=== PATIENT | female | born 1945 | race Caucasian/White ===

== ENCOUNTER 2017-04-03 12:36 | Inpatient (IN) | payer OTHER ==
[~2017-04-03] VITALS: Ht 165.1 cm; Wt 95.8 kg
--- NOTE | ~2017-04-03 | HC ---
[facility] [place] [address] CONSULTATION Name: JOSE LUIS WESTBROOK Room #: 428-[facility] IN M.R.#: [id number] Admission: 04/03/17 Attend Phys: Syed Brar DO Discharge: 04/04/17 Date of : 45 Report #: [id number] THIS REPORT FOR: //name// CC: Syed Camposry Rizwan DATE OF SERVICE: 04/04/2017 HISTORY OF PRESENT ILLNESS: This is a 71-year-old female patient who was evaluated by me for any neurological etiology for the patient's syncope. She gives a history that she is hypertensive. She did not take her antihypertensive that day. She started feeling bad and somewhat nauseous, then she passed out. She was out, but she did not have any tonic-clonic activity. It looks like she was out for 2 minutes. The exact duration is not clear. She recovered from that, but she may have been somewhat confused for a small amount of time after this episode occurred. No tongue biting or tonic-clonic activity was noticed. She had episode of syncope in the past that is typically at the site of the blood. She was seen by Cardiology and they think it is vasovagal spell and they are going to work her up further as an outpatient. REVIEW OF SYSTEMS: Indicate that she did have an injury to the knee. This was because of mechanical fall. There was no episode of syncope at that time. She did not hit her head or neck during that fall. She is not a diabetic and we do not know what her blood sugar was at that time. She feels back to her baseline. She does take 1 aspirin daily 81 mg and she has done it for some time. I carried out a 14-point review of system in this patient, it mostly looks otherwise unremarkable. PAST MEDICAL HISTORY: Positive for syncope as described above. FAMILY HISTORY: Negative for early age strokes. SOCIAL HISTORY: She does not drink alcohol or smoke presently. She does take an occasional drink. PHYSICAL EXAMINATION: Indicate she is alert. She is responsive. She is able to follow simple and complex command. She believes her speech, concentration, fund of knowledge and memory is at her baseline. Cranial nerve examination 2-12 looks unremarkable. Strength, sensation, reflexes and tone allowing for her knee problem looks unremarkable. She walks with a cane after this injury. I could not have a very good look at the patient's fundus. There is no carotid bruit. There is no thyroid mass. She is reasonably well-developed individual who does not have any dysmorphic features of eyes, ears and face. Her visions and hearing looks adequate. Her pulses are palpable. She has no edema, cyanosis or jaundice. Cardiac examination does not appear to be showing any abnormality which can explain the patient's symptom. There is no respiratory [facility] [address] [place] [address] CONSULTATION Name: JOSE LUIS WESTBROOK Room #: 428-P DIS IN M.R.#: [id number] Admission: 04/03/17 Attend Phys: Syed Brar DO Discharge: 04/04/17 Date of : 45 Report #: [id number] difficulty in this patient or any significant rhonchi. Blood pressure is 138/96, respiration is 22, pulse is 80, temperature is 98.1. LABORATORY DATA: Her white count is normal, but at one time, her potassium was low at 3.2 and her LDL was 142. She did have an MRI of the brain, MRA of the head, MRA of the neck as well as carotid Doppler that showed mild blocking, but nothing which can explain the patient's symptoms. IMPRESSION: It is unlikely that there is any neurological etiology for the patient's syncope. She needs to be worked up from the cardiac perspective as well as systemic causes need to be excluded. That will be deferred to the Cardiology as well as admitting physician, but since she did have a transient confusion after the episode, I will suggest getting an EEG done. I discussed all of this with the patient and I discussed our options in that regard. RECOMMENDATION: I asked her to work with Cardiology to determine any etiology for her symptoms. If after the workup, they do not find any cardiac etiology, then she should make a followup Neurology appointment. I discussed other options also with the patient and she wants to follow this plan. I will suggest treating her dyslipidemia and other systemic abnormality, which I will defer to admitting doctor. She is already dismissed, but I asked her to stay till the EEG is done and she will do. All the restrictions including restrictions on driving presently are being decided by Cardiology. Thank you very much for this referral and if you have any questions, please feel free to contact me. <ELECTRONICALLY SIGNED> By: Jeremi Wylie MD 04/09/17 0943 1113 99 Jeremi Wylie MD /nt
--- NOTE | ~2017-04-03 | EEG ---
[facility] [place] [address] ELECTROENCEPHALOGRAM Name: JOSE LUIS WESTBROOK Room #: 428-P [facility] IN M.R.#: [id number] Admission: 04/03/17 Attend Phys: Syed Brar DO Discharge: 04/04/17 Date of : 45 Report #: [id number] THIS REPORT FOR: //name// CC: Syed Astorga DATE OF SERVICE: 04/04/2017 This patient is being evaluated for an episode of syncope. EEG was done to evaluate the patient for the possibility of seizure. The background activity in this patient's EEG is about 10 Hz and 30 microvolts. This is a symmetrical activity. The patient went to sleep that is associated with bilaterally symmetrical sleep spindle and vertex sharp waves. Throughout the record, no active epileptiform activity was noticed. IMPRESSION: This patient's EEG is within normal limits. Thank you very much for this referral. <ELECTRONICALLY SIGNED> By: Jeremi Wylie MD 04/09/17 0944 1443 [id number] Jeremi Wylie MD /nt
--- NOTE | ~2017-04-03 | EKG ---
[place] [address] [facility] [place] [address] ELECTROCARDIOGRAM REPORT Name: JOSE LUIS WESTBROOK Room #: 428-P ADM IN M.R.#: [id number] Admission: 04/03/17 Attend Phys: Syed Brar DO Discharge: Date of : 45 Report #: [id number] THIS REPORT FOR: //name// [facility] ED Test Date: 2017-04-03 Test Time: 12:39:53 Pat Name: JOSE LUIS WESTBROOK Department: Room: 428 Gender: F Bellows Filler: [id number] : 1945 Requested By: Juan Moncada Order Number: [id number] MD: Luis Barnard Measurements Intervals [place] Rate: 64 P: 16 WY: 151 QRS: 19 QRSD: 89 T: 28 QT: 449 QTc: 464 Interpretive Statements Sinus rhythm Low voltage, precordial leads No previous ECG available for comparison Electronically Signed On 04-04-2017 9:08:27 [employer] by Luis Barnard [email or web address] <ELECTRONICALLY SIGNED> By: Luis Barnard MD, [facility] 04/04/17 0908 1239 1239 Luis Barnard MD, FACC /EPI
--- NOTE | ~2017-04-03 | 2DMMODE ---
[facility] [address] [address] 2 D/M-MODE ECHOCARDIOGRAM Name: JOSE LUIS WESTBROOK ISABELLA Room #: 428-P [facility] IN M.R.#: [id number] Admission: 04/03/17 Attend Phys: Syed Brar, Discharge: Date of : 45 Date of Service: 04/04/17 0925 Report #: [id number] THIS REPORT FOR: //name// APPROVED REPORT Study performed: 04/04/2017 08:18:49 EXAM: Comprehensive 2D, Doppler, and color-flow Echocardiogram Patient Location: Echo lab Room #: 428 Status: routine BSA: 2.02 HR: 78 bpm BP: 126/87 mmHg Rhythm: NSR Other Information Study Quality: Adequate/low parasternal window. Technically difficult due to body habitus. Indications Dyspnea Syncope 2D Dimensions RVDd: 29.26 mm IVSd: 9.92 (7-11mm) LVOT Diam: 20.66 (18-24mm) LVDd: 41.43 mm PWd: 9.29 (7-11mm) Ascending Ao: 26.64 (22-36mm) Aortic Root: 25.74 mm Volumes Left Atrial Volume (Systole) Single Plane 4CH: 33.60 mL Single Plane 2CH: 39.05 mL LA ESV Index: 19.00 mL/m2 Aortic Valve AoV Peak Derek.: 1.24 m/s AO Peak Gr.: 6.16 mmHg LVOT Max P.37 mmHg LVOT Max V: 0.77 m/s CINTHYA Vmax: 2.08 cm2 Mitral Valve E/A Ratio: 0.9 MV Decel. Time: 225.01 ms [facility] [address] [place] [address] 2 D/M-MODE ECHOCARDIOGRAM Name: JOSE LUIS WESTBROOK Room #: 428-P [facility] IN [facility].#: [id number] Admission: 04/03/17 Attend Phys: Syed Brar, Discharge: Date of : 45 Date of Service: 04/04/17 0925 Report #: [id number] MV E Max Derek.: 0.91 m/s MV A Derek.: 1.05 m/s MV PHT: 65.25 ms IVRT: 106.11 ms Pulmonary Valve PV Peak Derek.: 0.92 m/s PV Peak Gr.: 3.40 mmHg Tricuspid Valve TR Peak Derek.: 2.63 m/s RAP Estimate: 5.00 mmHg TR Peak Gr.: 27.66 mmHg PA Pressure: 33.00 mmHg Left Ventricle The left ventricle is normal size. There is normal LV segmental wall motion. There is normal left ventricular wall thickness. Left ventricular systolic function is normal. LVEF is 55-60%. Mild diastolic dysfunction is present (impaired relaxation pattern). Right Ventricle The right ventricle is normal size. The right ventricular systolic function is normal. Atria The left atrium size is normal. The right atrium size is normal. Aortic Valve The aortic valve is not well visualized but appears grossly normal. No aortic regurgitation is present. There is no aortic valvular stenosis. Mitral Valve Mild mitral annular calcification. Mild mitral regurgitation. Tricuspid Valve The tricuspid valve is normal in structure. Trace to mild tricuspid regurgitation. Estimated PAP is 30-35mmHg. Pulmonic Valve The pulmonary valve is normal in structure. Trace pulmonic regurgitation. [employer] [facility] [address] [place] [address] 2 D/M-MODE ECHOCARDIOGRAM Name: JOSE LUIS WESTBROOK ISABELLA Room #: 428-P [facility] IN M.R.#: [id number] Admission: 04/03/17 Attend Phys: Syed Brar, Discharge: Date of : 45 Date of Service: 04/04/17 0925 Report #: [id number] The aortic root is normal in size. The ascending aorta is normal in size. IVC is normal in size and collapses >50% with inspiration. Pericardium There is no pericardial effusion. <Conclusion> Left ventricular systolic function is normal. There is normal LV segmental wall motion. LVEF is 55-60%. Mild diastolic dysfunction The aortic valve is not well visualized but appears grossly normal. No aortic regurgitation or stenosis Mild mitral annular calcification. Mild mitral regurgitation. Trace to mild tricuspid regurgitation. Estimated pulmonary artery pressure 30-35mmHg. There is no pericardial effusion. <ELECTRONICALLY SIGNED> By: Luis Barnard MD, FACC 04/04/17924 4 4 Luis Barnard MD, FACC /INF
[2017-04-03 12:37] VITALS: BP 143/81
[2017-04-03] MEDS ORDERED: ALEVE220 MG PO (12:45)
[2017-04-03] MEDS ORDERED: ASPIR 8181 MG PO (12:45)
[2017-04-03] MEDS ORDERED: SERTRALINE HCL50 MG PO (12:45)
[2017-04-03] MEDS ORDERED: CALCIUM 600 +1 EAC1 PO (12:45)
[2017-04-03] MEDS ORDERED: INDAPAMIDE1.25 MG PO (12:45)
[2017-04-03 12:55] LABS: ABSOLUTE NEUTROPHILS 5.7 thou/uL (1.4-8.2); EOSINOPHILS 1.8 % (0.0-3.0); HEMATOCRIT 46.7 % (37.0-47.0); HEMOGLOBIN 15.9 gm/dL (12.0-15.0); LYMPHOCYTES 33.2 % (24.0-44.0); MCH 30.5 pg (26.0-34.0); MCHC 34.1 g/dL (28.0-37.0); MCV 89.4 fL (80.0-100.0); MONOCYTES 8.7 % (1.0-8.0); PLATELET COUNT 265 thou/uL (150-400); POLYS 55.3 % (36.0-66.0); RBC 5.22 mil/uL (4.20-5.00); WBC 10.3 thou/uL (4.0-11.0)
[2017-04-03 13:01] LABS: ANION GAP 12 mmol/L (7-16); BUN 24 mg/dL (7-18); CALCIUM 9.7 mg/dL (8.5-10.1); CHLORIDE 102 mmol/L (98-107); CO2 27 mmol/L (21-32); GLUCOSE 135 mg/dL (74-106); MANUAL DIFF NO; POTASSIUM 3.2 mmol/L (3.5-5.1); SODIUM 141 mmol/L (136-145)
[2017-04-03 13:10] LABS: TROPONIN-I < 0.04 ng/mL (<0.06)
[2017-04-03 14:00] LABS: URINE BILIRUBIN NEGATIVE (Negative); URINE BLOOD NEGATIVE (Negative); URINE COLOR YELLOW; URINE GLUCOSE-RANDOM* NEGATIVE (Negative); URINE KETONES NEGATIVE (Negative); URINE NITRITE NEGATIVE (Negative); URINE PROTEIN (DIPSTICK) NEGATIVE (Negative); URINE SPECIFIC GRAVITY 1.015 (1.005-1.035); URINE UROBILINOGEN 0.2 E.U./dl (0.2-1.0)
[2017-04-03 15:16] VITALS: BP 158/82
[2017-04-03 16:30] VITALS: BP 158/82
[2017-04-03 17:00] VITALS: BP 155/85
[2017-04-03 19:30] VITALS: BP 127/83
[2017-04-04 03:41] VITALS: BP 126/87
[2017-04-04 07:13] LABS: CHOLESTEROL 229 mg/dL (<200); HDL CHOLESTEROL 64 mg/dL (>40); LDL CHOLESTEROL 142 mg/dL (<100); TC:HDL 3.6 Ratio (Not establshd); TRIGLYCERIDE 115 mg/dL (<150); VLDL 23 mg/dL (<40)
[2017-04-04 08:05] VITALS: BP 138/96
[2017-04-04 08:08] VITALS: BP 138/96
[2017-04-04] MEDS ORDERED: ANTIVERT25 MG PO (10:07)
[2017-04-04 15:38] VITALS: BP 138/96
== END 2017-04-04 16:02 | disposition home or self-care (01) | DRG 149 ==
LOC: ER 12:36 → EROBS 14:45 → 4E 14:45 → ENTRNSPT 04-04 15:53 → 4E 04-04 16:02
PROVIDERS: Family Medicine; Nurse Practitioner
DX: R42 Dizziness and giddiness (principal); I10 Essential (primary) hypertension; M19.90 Unspecified osteoarthritis, unspecified site; F32.9 Major depressive disorder, single episode, unspecified; F41.9 Anxiety disorder, unspecified; R55 Syncope and collapse; E87.6 Hypokalemia; Z72.89 Other problems related to lifestyle; Z79.82 Long term (current) use of aspirin; Z79.899 Other long term (current) drug therapy
CPT/HCPCS: 10183